=== PATIENT | male | born 1980 ===

== ENCOUNTER 2021-03-11 21:39 | Emergency (ER) | payer SELFPAY ==
[2021-03-11 22:32] VITALS: BP 131/82
--- NOTE | 2021-03-11 22:51 | Emergency Department Report ---
ED Alcohol HPI - General Chief Complaint: Alcohol Stated Complaint: ETOH Time Seen by Provider: 03/11/21 22:23 Source: EMS Mode of arrival: Stretcher Limitations: Language Barrier (Language line official court interpreter used) - History of Present Illness Initial Comments: 40-year-old male, no past medical history, presents to ED for alcohol intoxication. EMS brought patient to the ED after he passed out on the side of the road. Patient states he drank a 12 pack of beer total throughout the day. Patient states he does not normally drink that much. States he normally drinks 1 or 2 beers after work. States he drank a 12 pack because it is the weekend. Patient denies any drug use. Patient states he got dizzy and passed out. He is currently A&O x3. He has no complaints. MD Complaint: alcohol intoxication Previous Visits for Alcohol Intoxication?: No Recent Trauma: No Associated Symptoms: syncope. denies: nausea, vomiting, abdominal pain, hematemesis - Related Data Allergies Allergy/AdvReac Type Severity Reaction Status Date / Time No Known Allergies Allergy Verified 03/11/21 22:07 ED Review of Systems ROS: Stated complaint: ETOH Other details as noted in HPI Comment: All other systems reviewed and negative Constitutional: denies: fever Respiratory: denies: shortness of breath Cardiovascular: denies: chest pain Gastrointestinal: denies: abdominal pain, vomiting, diarrhea Neurological: denies: headache ED Past Medical Hx - Past Medical History Previous Medical History?: No ED Physical Exam - General Limitations: Language Barrier General appearance: alert, in no apparent distress, other (Smells of EtOH) - Head Head exam: Present: atraumatic, normocephalic - Eye Eye exam: Present: normal appearance, EOMI - ENT ENT exam: Present: mucous membranes moist - Neck Neck exam: Present: normal inspection - Respiratory Respiratory exam: Present: normal lung sounds bilaterally. Absent: respiratory distress - Cardiovascular Cardiovascular Exam: Present: regular rate, normal rhythm - GI/Abdominal GI/Abdominal exam: Present: soft. Absent: distended, tenderness - Extremities Exam Extremities exam: Present: normal inspection - Neurological Exam Neurological exam: Present: alert, oriented X3, CN II-XII intact. Absent: motor sensory deficit - Psychiatric Psychiatric exam: Present: normal affect, normal mood - Skin Skin exam: Present: warm, dry, intact, normal color ED Course Vital Signs 03/11/21 03/11/21 03/11/21 21:46 22:22 22:26 Temperature 97.5 F L Pulse Rate 61 Respiratory 18 18 Rate Blood Pressure 127/84 [Left] O2 Sat by Pulse 99 97 97 Oximetry 03/11/21 22:31 Temperature Pulse Rate 65 Respiratory 18 Rate Blood Pressure 131/82 [Left] O2 Sat by Pulse 99 Oximetry - Reevaluation(s) Reevaluation #1: 03/11/21 23:55 Patient is alert and oriented x3. Gait is normal. Speech is clear. Girlfriend is here to parts picker patient. He'll be discharged at this time. ED Medical Decision Making - Medical Decision Making 40-year-old male with alcohol intoxication secondary to drinking a 12 pack of beer today. Patient states he became dizzy and passed out because he drank too much. Denies any headache, chest pain, shortness of breath, vomiting, abdominal pain. Vital signs are normal. Physical exam is unremarkable. Patient has called his girlfriend to come and pick. He will be discharged. - Differential Diagnosis Alcohol intoxication Critical care attestation.: If time is entered above; I have spent that time in minutes in the direct care of this critically ill patient, excluding procedure time. ED Disposition Clinical Impression: Alcohol intoxication Disposition: 01 HOME / SELF CARE / HOMELESS Is pt being admited?: No Condition: Stable Instructions: Alcohol Intoxication, [id number] Time of Disposition: 23:50 Print Language: CHINESE
== END 2021-03-12 06:07 | disposition home or self-care (01) ==
LOC: ED 21:39
DX: F10.129 Alcohol abuse with intoxication, unspecified (principal); Y90.9 Presence of alcohol in blood, level not specified
CPT/HCPCS: 99283